=== PATIENT | female | born 1970 | race Caucasian/White ===

== ENCOUNTER 2016-08-30 08:03 | Day surgery (SDC) | payer MEDICAID ==
[~2016-08-30] VITALS: Ht 165.1 cm; Wt 74.8 kg
[~2016-08-30 08:03] MED LIST: EZFE 200200 MG PO; MOBIC7.5 MG PO; ZOLOFT25 MG PO
[2016-08-30 08:56] VITALS: BP 125/81; Ht 165.1 cm; Wt 74.8 kg
[2016-08-30 09:04] LABS: HEMATOCRIT 42.1 % (36.0-48.0); HEMOGLOBIN 13.5 g/dL (12-16); MCH 27.1 pg (26.0-34.0); MCHC 32.1 g/dL (31.0-37.0); MCV 84.5 fL (80.0-100.0); MEAN PLATELET VOLUME 10.6 fL (7.4-10.4); RBC 4.98 10x6/uL (4.00-5.40); RDW 20.7 % (11.5-14.5); WBC 6.3 10x3/uL (4.8-10.8)
--- NOTE | 2016-08-30 15:04 | NUR ---
5 DISCHARGE INSTRUCTIONS COMPLETE. ESCORTED OUT BY VOLUNTEER
== END 2016-08-30 14:55 | disposition home or self-care (01) ==
LOC: D.OPS 08:03 → D.PAN 10:15 → D.OPS 10:15 → D.PAN 13:15 → D.OPS 13:15
PROVIDERS: Anesthesiology
DX: M21.612 Bunion of left foot (principal); Z01.810 Encounter for preprocedural cardiovascular examination; Z01.811 Encounter for preprocedural respiratory examination; Z01.812 Encounter for preprocedural laboratory examination